=== PATIENT | male | born 1935 | race Caucasian/White ===

== ENCOUNTER 2024-12-15 13:19 | Inpatient (IN) | payer MEDICARE ==
[2024-12-15] VITALS (8 sets, daily range): BP systolic 135–146; BP diastolic 70–83; PULSE 71–83; RESP 16–18; TEMP 97.6–98.6; O2SAT 98–100
[~2024-12-15] VITALS: Ht 177.8 cm; Wt 88.5 kg
[2024-12-15] MEDS ORDERED: Morphine 4mg INJECTION 4 MG/ML INJ IV PRN (13:45)
[2024-12-15] MEDS ORDERED: ONDANSETRON HCL INJ 2MG/ML 2ML 2 MG/ML VIAL IV PRN (13:45)
[2024-12-15 14:08] LABS: BASOPHILS % 0.4 % (0.0-1.0); EOSINOPHILS % 3.1 % (0.0-6.0); LYMPHOCYTES % 20.7 % (18.0-39.1); MONOCYTES % 9.0 % (4.4-11.3); NEUTROPHILS % 66.4 % (38.7-80.0); RED CELL DISTRIBUTION WIDTH 13.5 % (11.7-14.4)
[2024-12-15 14:57] LABS: EST GLOMERULAR FILTRATION RATE 27.0 ML/MIN (>=60)
[2024-12-15] MEDS: MEROPENEM 1 GM in SODIUM CHLORIDE 0.9% 100 ML IV SCH (17:39)
[2024-12-15] MEDS ORDERED: TYLENOL EXTRA500 MG PO (19:25)
[2024-12-15] MEDS ORDERED: CRESTOR40 MG PO (20:22)
[2024-12-15] MEDS ORDERED: ASPIRIN81 MG PO (20:22)
[2024-12-15] MEDS ORDERED: EUTHYROX50 MCG (20:23)
[2024-12-15] MEDS ORDERED: LUTEIN20 MG (20:23)
[2024-12-15] MEDS ORDERED: ELIQUIS2.5 MG PO (20:23)
[2024-12-15] MEDS ORDERED: METOPROLOL SUCC25 MG PO (20:23)
[2024-12-15] MEDS ORDERED: HYGROTON25 MG PO (20:23)
[2024-12-15] MEDS ORDERED: VASCEPA1 GM (20:23)
[2024-12-15] MEDS ORDERED: FAMOTIDINE20 MG PO (20:23)
[2024-12-16] VITALS: BP 125/73; PULSE 67; RESP 16; TEMP 97.3; O2SAT 100
[2024-12-16] MEDS: ACETAMINOPHEN 325 MG TAB PO PRN (01:56)
[2024-12-16 05:12] LABS: BASOPHILS % 0.5 % (0.0-1.0); EOSINOPHILS % 3.2 % (0.0-6.0); LYMPHOCYTES % 15.4 % (18.0-39.1); MONOCYTES % 7.7 % (4.4-11.3); NEUTROPHILS % 72.7 % (38.7-80.0); RED CELL DISTRIBUTION WIDTH 13.3 % (11.7-14.4)
[2024-12-16 05:20] VITALS: BP 115/64; PULSE 67; RESP 18; TEMP 97.3; O2SAT 100
[2024-12-16 05:48] LABS: EST GLOMERULAR FILTRATION RATE 28.0 ML/MIN (>=60)
[2024-12-16 07:14] VITALS: PULSE 77; RESP 18; O2SAT 98
[2024-12-16] MEDS ORDERED: BISACODYL 10 MG SUPP PR PRN (08:15)
[2024-12-16] MEDS ORDERED: POLYETHYLENE GLYCOL 3350 17 GM PACK PO PRN (08:15)
[2024-12-16 08:53] VITALS: BP 138/66; PULSE 73; RESP 18; TEMP 98.4; O2SAT 97
[2024-12-16] MEDS: SENNOSIDES 8.6 MG TAB PO SCH (09:00)
[2024-12-16] MEDS: DOCUSATE SODIUM 100 MG CAP PO SCH (09:00)
[2024-12-16] MEDS: APIXABAN 2.5 MG TABLET PO SCH (09:25)
[2024-12-16] MEDS: FAMOTIDINE 20 MG TAB PO SCH (09:25)
[2024-12-16] MEDS: LEVOTHYROXINE SODIUM 50 MCG TAB PO SCH (09:25)
[2024-12-16] MEDS: ASPIRIN 81 MG CHEW TAB PO SCH (09:25)
[2024-12-16] MEDS: METOPROLOL SUCCINATE 25 MG TAB XL PO SCH (09:26)
[2024-12-16 10:05] VITALS: BP 138/68; PULSE 77; RESP 18; TEMP 98.4; O2SAT 97
[2024-12-16 20:00] VITALS: BP 115/53; PULSE 73; RESP 18; TEMP 98.5; O2SAT 98
[2024-12-16] MEDS: CRESTOR 10MG PO SCH (20:18)
[2024-12-17] VITALS (9 sets, daily range): BP systolic 113–146; BP diastolic 45–71; PULSE 62–82; RESP 16–18; TEMP 97.5–99; O2SAT 98–100
[2024-12-17] MEDS: MEROPENEM 1 GM in SODIUM CHLORIDE 0.9% 100 ML IV SCH (02:31)
[2024-12-17 05:30] LABS: BASOPHILS % 0.6 % (0.0-1.0); EOSINOPHILS % 5.1 % (0.0-6.0); LYMPHOCYTES % 21.9 % (18.0-39.1); MONOCYTES % 9.5 % (4.4-11.3); NEUTROPHILS % 62.6 % (38.7-80.0); RED CELL DISTRIBUTION WIDTH 13.3 % (11.7-14.4)
[2024-12-17 05:58] LABS: EST GLOMERULAR FILTRATION RATE 30.0 ML/MIN (>=60)
[2024-12-18] VITALS (7 sets, daily range): BP systolic 120–137; BP diastolic 57–93; PULSE 62–97; RESP 17–18; TEMP 97.4–98.8; O2SAT 98–100
[2024-12-18 07:17] LABS: BASOPHILS % 0.8 % (0.0-1.0); EOSINOPHILS % 5.7 % (0.0-6.0); LYMPHOCYTES % 19.7 % (18.0-39.1); MONOCYTES % 11.0 % (4.4-11.3); NEUTROPHILS % 62.5 % (38.7-80.0); RED CELL DISTRIBUTION WIDTH 13.2 % (11.7-14.4)
[2024-12-18 07:27] LABS: EST GLOMERULAR FILTRATION RATE 33.0 ML/MIN (>=60)
[2024-12-19 04:00] VITALS: BP 117/52; PULSE 60; RESP 20; TEMP 97.7; O2SAT 98
[2024-12-19 08:07] VITALS: BP 149/66; PULSE 88; RESP 20; TEMP 97.7; O2SAT 100
[2024-12-19 08:37] VITALS: BP 149/66; PULSE 88; RESP 20; TEMP 97.7; O2SAT 100
[2024-12-19 12:07] VITALS: BP 120/76; PULSE 80; RESP 20; TEMP 98.5; O2SAT 97
[2024-12-19 16:44] VITALS: BP 137/65; PULSE 81; RESP 18; TEMP 98.2; O2SAT 97
[2024-12-19 17:22] LABS: BASOPHILS % 0.7 % (0.0-1.0); EOSINOPHILS % 3.2 % (0.0-6.0); LYMPHOCYTES % 18.8 % (18.0-39.1); MONOCYTES % 13.3 % (4.4-11.3); NEUTROPHILS % 63.7 % (38.7-80.0); RED CELL DISTRIBUTION WIDTH 13.2 % (11.7-14.4)
[2024-12-19 17:33] LABS: EST GLOMERULAR FILTRATION RATE 38.0 ML/MIN (>=60)
[2024-12-19 20:00] VITALS: BP 112/83; PULSE 86; RESP 20; TEMP 98.6; O2SAT 100
[2024-12-20 04:00] VITALS: BP 112/61; PULSE 84; RESP 20; TEMP 97.7; O2SAT 97
[2024-12-20 08:22] VITALS: BP 124/91; PULSE 87; RESP 20; TEMP 98; O2SAT 99
[2024-12-20 08:26] VITALS: BP 124/91; PULSE 87; RESP 20; TEMP 98; O2SAT 99
[2024-12-20 11:40] VITALS: BP 123/78; PULSE 87; RESP 18; TEMP 98; O2SAT 99
[2024-12-20 16:28] VITALS: BP 137/71; PULSE 95; RESP 20; TEMP 98.4; O2SAT 98
== END 2024-12-20 18:01 | disposition home or self-care (01) | DRG 603 ==
LOC: ER 13:30 → ERHOLD 13:38 → MED/SURG2 14:58
PROVIDERS: ADMIT Internal Medicine; ATTEND Internal Medicine
DX: L03.115 Cellulitis of right lower limb (principal); N17.9 Acute kidney failure, unspecified; I12.9 Hypertensive chronic kidney disease with stage 1 through stage 4 chronic kidney disease, or unspecified chronic kidney disease; E03.9 Hypothyroidism, unspecified; N18.9 Chronic kidney disease, unspecified; I25.10 Atherosclerotic heart disease of native coronary artery without angina pectoris; E78.5 Hyperlipidemia, unspecified; G62.9 Polyneuropathy, unspecified; M47.816 Spondylosis without myelopathy or radiculopathy, lumbar region; G89.4 Chronic pain syndrome; M54.32 Sciatica, left side; E29.1 Testicular hypofunction; E66.9 Obesity, unspecified; Z68.28 Body mass index [BMI] 28.0-28.9, adult; Z79.82 Long term (current) use of aspirin; Z79.890 Hormone replacement therapy; Z95.1 Presence of aortocoronary bypass graft
CPT/HCPCS: 36415; 80048; 80053; 83735; 85025; 93970; 94799; 99252; 99284; J2185; J7050